=== PATIENT | male | born 1965 | race Caucasian/White ===

== ENCOUNTER → 2019-08-04 | Outpatient (CLI) | payer OTHER ==
--- NOTE | 2019-08-04 11:43 | Diagnostic Imaging Report ---
INDICATION: CHRONIC OBSTRUCTIVE PULMONARY DISEASE, ACUTE BRONCHITIS COMPARISON: None FINDINGS: Frontal and lateral views of the chest demonstrate normal heart size and pulmonary vascularity. The lungs show mild hyperinflation with increased lucency to the upper lung rascon consistent with background emphysematous disease. There are no signs of infiltrate, pleural effusions or pneumothoraces. The visualized osseous structures show no acute abnormalities. IMPRESSION: 1. No acute process. No signs of infiltrates, effusions or pneumothoraces. 2. Background emphysematous disease. Dictated by: Dictated on workstation # [id number]
== END ==
LOC: RAD FS 11:19
PROVIDERS: ATTEND Emergency Medicine
DX: J43.9 Emphysema, unspecified (principal); J20.9 Acute bronchitis, unspecified
CPT/HCPCS: 71046

== ENCOUNTER → 2020-02-23 | Outpatient (CLI) | payer OTHER ==
--- NOTE | 2020-02-23 09:23 | Diagnostic Imaging Report ---
INDICATION: Pain status post injury. COMPARISON: None. FINDINGS: 3 views of the left knee joint demonstrate no acute fracture or dislocation. No focal osseous lesions are seen. No significant joint effusion is seen. The surrounding soft tissue structures are unremarkable. There are no radiopaque foreign bodies. IMPRESSION: 1. No acute fractures or dislocations of the left knee joint. Dictated by: Dictated on workstation # [id number]
== END ==
LOC: RAD FS 09:01
PROVIDERS: ATTEND Emergency Medicine
DX: M23.207 Derangement of unspecified meniscus due to old tear or injury, left knee (principal)
CPT/HCPCS: 73562

== ENCOUNTER → 2021-03-31 | Outpatient (CLI) | payer MEDICARE, MEDICAID ==
--- NOTE | 2021-03-31 08:33 | Diagnostic Imaging Report ---
EXAM: CERVICAL SPINE 3 VIEW OR LESS INDICATION: Neck pain. COMPARISON: None. FINDINGS: Normal alignment. Vertebral body heights preserved. No fractures. Mild degenerative endplate changes at C6-C7. Normal prevertebral soft tissues. IMPRESSION: Mild spondylotic changes in the cervical spine. No acute radiographic findings. Dictated by: Dictated on workstation # [id number]
--- NOTE | 2021-03-31 08:35 | Diagnostic Imaging Report ---
EXAM: LUMBAR SPINE 2 OR 3 VIEW INDICATION: Back pain. Lumbar spine fusion. COMPARISON: None. FINDINGS: Normal alignment. Vertebral body heights preserved. No fractures identified. Mild degenerative endplate changes and facet arthropathy, greatest at L3-L5. Posterior instrumentation at L5-S1. Hardware components appear intact. No evidence of loosening. Moderate atherosclerotic calcifications. Visualized pelvis is intact. IMPRESSION: 1. Posterior instrumentation at L5-S1. No evidence hardware failure. 2. Mild spondylotic changes in the lumbar spine are greatest at L3-L5. Dictated by: Dictated on workstation # [id number]
--- NOTE | 2021-03-31 08:38 | Diagnostic Imaging Report ---
EXAM: THORACIC SPINE 3V AP LAT SWIM INDICATION: Back pain. COMPARISON: None. FINDINGS: Normal alignment. Vertebral body heights preserved. No fractures identified. No substantial spondylotic change. IMPRESSION: Negative thoracic spine radiographs. Dictated by: Dictated on workstation # [id number]
== END ==
LOC: RAD FS 08:05
PROVIDERS: ATTEND Nurse Practitioner Family
DX: M47.816 Spondylosis without myelopathy or radiculopathy, lumbar region (principal); M47.812 Spondylosis without myelopathy or radiculopathy, cervical region; M54.6 Pain in thoracic spine
CPT/HCPCS: 72040; 72072; 72100

== ENCOUNTER → 2021-04-05 | Outpatient (CLI) | payer MEDICARE, MEDICAID ==
--- NOTE | 2021-04-05 11:09 | Diagnostic Imaging Report ---
INDICATION: Shoulder pain. FINDINGS: There is arthrosis of the acromioclavicular joint. There are postsurgical changes in the rotator cuff. No fracture or dislocation. The right lung is clear. Soft tissues are unremarkable. IMPRESSION: Degenerative and postsurgical changes in the right shoulder, otherwise unremarkable. Dictated by: Dictated on workstation # [id number]
== END ==
LOC: RAD FS 10:44
PROVIDERS: ATTEND Emergency Medicine
DX: M19.011 Primary osteoarthritis, right shoulder (principal); Z98.890 Other specified postprocedural states
CPT/HCPCS: 73030

== ENCOUNTER 2022-01-18 13:45 | Emergency (ER) | payer MEDICARE, MEDICAID ==
[2022-01-18] MEDS ORDERED: ORPHENADRINE 60 MG/2 ML (NORFLEX) AMP (ED ONLY) IM STA (13:53)
[2022-01-18] MEDS ORDERED: KETOROLAC 30 MG/ML VIAL IM STA (13:53)
--- NOTE | 2022-01-18 14:01 | ED General ---
General Chief Complaint: Chest Wall Stated Complaint: LT RIB INJ History of Present Illness Date Seen by Provider: Jan 18, 2022 Time Seen by Provider: 13:58 Initial Comments 56-year-old male presents with pain to his left lateral ribs and anterior chest wall along the pectoralis muscle. Reports that he injured a couple days ago. That got worse especially after some use on it over the last day or 2. He reports a sharp stabbing pain that feels like "something is moving" that comes and goes. Is worse with movement or palpation. Allergies and Home Medications Allergies Coded Allergies: Penicillins (Verified Allergy, Unknown, 01/18/22) Patient Home Medication List Home Medication List Reviewed: Yes Baclofen (Baclofen) 5 Mg Tablet, 5 MG PO TID Prescribed by: DOMINIC JANG on 01/18/22 1430 Naproxen (Naprosyn) 500 Mg Tablet, 500 MG PO BID Prescribed by: DOMINIC JANG on 01/18/22 1430 Review of Systems Review of Systems Constitutional: No chills, No fever EENTM: no symptoms reported Respiratory: see HPI Cardiovascular: see HPI Gastrointestinal: no symptoms reported Musculoskeletal: no symptoms reported Skin: no symptoms reported Psychiatric/Neurological: No Symptoms Reported Hematologic/Lymphatic: No Symptoms Reported Past Nfsvhiy-Szfopy-Zyuajx Hx Patient Social History Tobacco Use?: Yes Tobacco type used: Cigarettes Substance use?: No Alcohol Use?: No Pt feels they are or have been: No Immunizations Up To Date First/Initial COVID19 Vaccinat: Yes Second COVID19 Vaccination Chaitanya: Yes Past Medical History Surgery/Hospitalization HX: Neuropathy; Depression; Seizures; GERD; COPD Physical Exam Vital Signs Vital Signs - First Documented 01/18/22 13:50 Temp 36.9 Pulse 67 Resp 18 B/P (MAP) 135/90 (105) Pulse Ox 95 O2 Delivery Room Air Capillary Refill : Height, Weight, BMI Height: '" Weight: lbs. oz. kg; BMI Method: General Appearance: No Apparent Distress, WD/WN HEENT: PERRL/EOMI Neck: Normal Inspection, Non Tender Respiratory: Lungs Clear, Normal Breath Sounds, Other (Tenderness along anterio r chest wall along the pectoralis along with the lateral upper chest wall tenderness no obvious crepitus) Cardiovascular: Regular Rate, Rhythm, No Edema Gastrointestinal: Non Tender, Soft Extremity: Normal Capillary Refill; No Swelling; Other (Upper rib/lateral left chest wall tenderness no crepitus or other abnormality noted) Neurologic/Psychiatric: Alert, Oriented x3, No Motor/Sensory Deficits, Normal Mood/Affect, fish trapper II-XII Norm as Tested Skin: Normal Color, Warm/Dry Progress/Results/Core Measures Suspected Sepsis SIRS Temperature: Pulse: Respiratory Rate: Blood Pressure / Mean: Results/Orders My Orders Orders - DOMINIC JANG L DO Ketorolac Injection (Toradol Injection) (01/18/22 13:53) Orphenadrine Inj (Ed Only) (Norflex Inje (01/18/22 13:53) Ribs/Unilateral With Chest (01/18/22 13:55) Vital Signs/I&O 01/18/22 13:50 Temp 36.9 Pulse 67 Resp 18 B/P (MAP) 135/90 (105) Pulse Ox 95 O2 Delivery Room Air Capillary Refill : Progress Note : Progress Note Patient with no acute findings on x-ray. Symptoms most likely just muscle spasm. He did get some relief with Flexeril. Prescribe him baclofen and napro xen. He can also use topicals. Patient stable and discharged home Diagnostic Imaging Diagonstic Imaging: Xray Plain Films/CT/US/NM/MRI: chest Comments Date of Exam:01/18/22 RIBS/UNILATERAL WITH CHEST EXAMINATION: Left rib radiographs, 2 views. PA chest, single view. COMPARISON: Chest radiographs August 04, 2019. HISTORY: 56-year-old male, left anterior chest wall pain. FINDINGS: Heart size and mediastinal contours are unremarkable. There is no identified pneumothorax. There is no large pleural effusion. There is no identified focal airspace consolidation. There is no identified displaced left-sided rib fracture. IMPRESSION: 1. No identified left-sided rib fracture or acute cardiopulmonary abnormality. Reviewed: Reviewed by Me, Reviewed/Discussed Departure Impression Primary Impression: Muscle spasm Disposition: 01 HOME, SELF-CARE Condition: Stable Departure-Patient Inst. Referrals: JABARI LATHAM DO (PCP) Primary Care Physician Patient Instructions: Using Cold for Pain, Using Heat for Pain, Muscle Spasm ED Add. Discharge Instructions: 4% topical lidocaine with menthol cream gel or patch use as directed on package Voltaren/diclofenac cream use as directed on package Capsaicin cream use as directed on package Ice 20 minutes at a time or warm moist heat 20 minutes at a time 3-4 times daily depending on which gives most relief All discharge instructions reviewed with patient and/or family. Voiced understanding. Scripts Naproxen (Naprosyn) 500 Mg Tablet 500 MG PO BID, #30 TAB 0 Refills Prov: DOMINIC JANG DO 01/18/22 Baclofen (Baclofen) 5 Mg Tablet 5 MG PO TID, #15 TAB Prov: DOMINIC JANG DO 01/18/22 DOMINIC JANG DO Jan 18, 2022 14:01
--- NOTE | 2022-01-18 14:27 | Diagnostic Imaging Report ---
EXAMINATION: Left rib radiographs, 2 views. PA chest, single view. COMPARISON: Chest radiographs August 04, 2019. HISTORY: 56-year-old male, left anterior chest wall pain. FINDINGS: Heart size and mediastinal contours are unremarkable. There is no identified pneumothorax. There is no large pleural effusion. There is no identified focal airspace consolidation. There is no identified displaced left-sided rib fracture. IMPRESSION: 1. No identified left-sided rib fracture or acute cardiopulmonary abnormality. Dictated by: Dictated on workstation # [id number]
[2022-01-18] MEDS ORDERED: BACL5TAB PO (14:30)
[2022-01-18] MEDS ORDERED: NAPR-1071 PO (14:30)
[2022-01-18 14:38] VITALS: BP 135/90
== END 2022-01-18 14:38 | disposition home or self-care (01) ==
LOC: EDUNIT# 13:45 → ER FS 13:47
DX: M62.838 Other muscle spasm (principal); F17.210 Nicotine dependence, cigarettes, uncomplicated; Z28.311 Partially vaccinated for COVID-19
CPT/HCPCS: 71101

== ENCOUNTER 2022-01-30 19:37 | Emergency (ER) | payer MEDICARE, MEDICAID ==
[~2022-01-30] VITALS: Ht 182.8 cm; Wt 94.8 kg
[~2022-01-30 19:37] MED LIST: BACL5TAB PO; NAPR-1071 PO
[2022-01-30] MEDS ORDERED: FAMOTIDINE 20 MG (PEPCID) TABLET PO STA (19:46)
[2022-01-30] MEDS ORDERED: morphine INJ 10 MG/ML 1ML (SYR OR VIAL) IVP STA (19:46)
--- NOTE | 2022-01-30 19:50 | ED Abdominal Pain ---
General Stated Complaint: ABD PAIN Source of Information: Patient, EMS Exam Limitations: No Limitations History of Present Illness Date Seen by Provider: Jan 30, 2022 Time Seen by Provider: 19:39 Initial Comments 56-year-old male coming in via EMS from home due to abdominal pain with nausea and nonbloody nonbilious vomiting. Started this morning, severe, sharp, center of his abdomen, does not radiate anywhere. Try taking some oxycodone he got from a friend which did not help. Had a hard stool yesterday and a loose stool today that was nonbloody. Denies any fever, chest pain, shortness of breath, weakness, numbness, rash, dysuria, or any other concerns. He says this happens intermittently and has for years. He says he has had multiple studies done, but none have been completed within our hospital system. Allergies and Home Medications Allergies Coded Allergies: Penicillins (Verified Allergy, Unknown, 01/18/22) Patient Home Medication List Home Medication List Reviewed: Yes Baclofen (Baclofen) 5 Mg Tablet, 5 MG PO TID Prescribed by: DOMINIC JANG on 01/18/22 1430 Naproxen (Naprosyn) 500 Mg Tablet, 500 MG PO BID Prescribed by: DOMINIC JANG on 01/18/22 1430 Review of Systems Review of Systems Constitutional: No fever EENTM: No Blurred Vision Respiratory: Denies Cough Cardiovascular: Denies Chest Pain Gastrointestinal: Abdominal Pain, Nausea, Vomiting Genitourinary: No Symptoms Reported Musculoskeletal: no symptoms reported Skin: no symptoms reported Psychiatric/Neurological: No Symptoms Reported Endocrine: No Symptoms Reported Hematologic/Lymphatic: No Symptoms Reported All Other Systems Reviewed Negative Unless Noted: Yes Past Vrxcrsy-Vrjktd-Ojvggs Hx Patient Social History Tobacco Use?: Yes Substance use?: Yes Substance type: 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 oz. kg; BMI Method: General Appearance: WD/WN, mild distress HEENT: PERRL/EOMI, normal ENT inspection, pharynx normal Neck: non-tender, full range of motion, supple, normal inspection Respiratory: chest non-tender, lungs clear, normal breath sounds, no respirat ory distress, no accessory muscle use Cardiovascular: regular rate, rhythm, no edema, no murmur Gastrointestinal: normal bowel sounds, soft; No distended, No guarding, No rebound; tenderness Extremities: normal range of motion, non-tender, normal inspection, no pedal edema, no calf tenderness, normal capillary refill Back: normal inspection, no CVA tenderness Neurologic/Psychiatric: no motor/sensory deficits, alert, normal mood/affect Skin: normal color, warm/dry Lymphatic: no adenopathy Progress/Results/Core Measures Results/Orders Lab Results Laboratory Tests Test 01/30/22 19:47 Range/Units White Blood Count 7.7 4.3-11.0 10^3/uL Red Blood Count 5.24 4.30-5.52 10^6/uL Hemoglobin 15.3 13.3-17.7 g/dL Hematocrit 44 40-54 % Mean Corpuscular Volume 85 80-99 fL Mean Corpuscular Hemoglobin 29 25-34 pg Mean Corpuscular Hemoglobin Concent 35 32-36 g/dL Red Cell Distribution Width 12.0 10.0-14.5 % Platelet Count 301 130-400 10^3/uL Mean Platelet Volume 9.3 9.0-12.2 fL Immature Granulocyte % (Auto) 0 % Neutrophils (%) (Auto) 88 H 42-75 % Lymphocytes (%) (Auto) 9 L 12-44 % Monocytes (%) (Auto) 3 0-12 % Eosinophils (%) (Auto) 0 0-10 % Basophils (%) (Auto) 0 0-10 % Neutrophils # (Auto) 6.8 1.8-7.8 10^3/uL Lymphocytes # (Auto) 0.7 L 1.0-4.0 10^3/uL Monocytes # (Auto) 0.2 0.0-1.0 10^3/uL Eosinophils # (Auto) 0.0 0.0-0.3 10^3/uL Basophils # (Auto) 0.0 0.0-0.1 10^3/uL Immature Granulocyte # (Auto) 0.0 0.0-0.1 10^3/uL Neutrophils % (Manual) 86 % Lymphocytes % (Manual) 12 % Monocytes % (Manual) 2 % Sodium Level 140 135-145 MMOL/L Potassium Level 4.0 3.6-5.0 MMOL/L Chloride Level 106 98-107 MMOL/L Carbon Dioxide Level 18 L 21-32 MMOL/L Anion Gap 16 H 5-14 MMOL/L Blood Urea Nitrogen 12 7-18 MG/DL Creatinine 0.79 0.60-1.30 MG/DL Estimat Glomerular Filtration Rate 104 BUN/Creatinine Ratio 15 Glucose Level 144 H 70-105 MG/DL Calcium Level 10.2 H 8.5-10.1 MG/DL Corrected Calcium 8.5-10.1 MG/DL Total Bilirubin 0.7 0.1-1.0 MG/DL Aspartate Amino Transf (AST/SGOT) 18 5-34 U/L Alanine Aminotransferase (ALT/SGPT) 15 0-55 U/L Alkaline Phosphatase 104 40-136 U/L Total Protein 7.9 6.4-8.2 GM/DL Albumin 4.8 H 3.2-4.5 GM/DL Lipase 13 8-78 U/L My Orders Orders - LUIZ MORENO MD Comprehensive Metabolic Panel (01/30/22 19:46) Lipase (01/30/22 19:46) Ed Iv/Invasive Line Start (01/30/22 19:46) Cbc With Automated Diff (01/30/22 19:46) Ct Abdomen/Pelvis W (01/30/22 19:46) Ed Iv/Invasive Line Start (01/30/22 19:46) Ns Iv 1000 Ml (Sodium Chloride 0.9%) (01/30/22 20:00) Ondansetron Injection (Zofran Injectio (01/30/22 20:00) Famotidine Tablet (Pepcid Tablet) (01/30/22 19:46) Morphine Injection (Morphine Injection (01/30/22 19:46) Manual Differential (01/30/22 19:47) Iohexol Injection (Omnipaque 350 Mg/Ml 1 (01/30/22 20:15) Sodium Chloride Flush (Catheter Flush Sy (01/30/22 20:15) Ns (Ivpb) (Sodium Chloride 0.9% Ivpb Bag (01/30/22 20:15) Received Contrast (Hold Metformin- Contr (01/30/22 20:15) Medications Given in ED Current Medications Medications Dose Ordered Sig/Raj Route Start Time Stop Time Status Last Admin Dose Admin Iohexol 100 ml ONCE ONCE IV 01/30/22 20:15 01/30/22 20:16 DC 01/30/22 20:35 100 ML Ondansetron HCl 4 mg ONCE ONCE IVP 01/30/22 20:00 01/30/22 20:01 DC 01/30/22 19:56 4 MG Sodium Chloride 10 ml NEEDED PRN IV 01/30/22 20:15 01/30/22 20:35 10 ML Sodium Chloride 100 ml ONCE ONCE IV 01/30/22 20:15 01/30/22 20:16 DC 01/30/22 20:35 80 ML Vital Signs/I&O 01/30/22 19:37 Temp 36.8 Pulse 77 Resp 17 B/P (MAP) 154/114 (127) Pulse Ox 99 O2 Delivery Room Air Progress Progress Note : Progress Note 56-year-old male with above history coming in due to abdominal pain with nausea. ABCs were intact and vitals were stable on presentation. An IV was placed and he was given morphine for pain and Zofran for nausea as well as IV fluids. Ba sic labs with unremarkable CBC, unremarkable electrolytes, normal creatinine, LFTs unremarkable, normal lipase. CT abdomen pelvis with concerns for likely gastroenteritis. This would clinically fit his picture with the loose stool, abdominal pain and nausea today. I believe he stable for discharge with outpatient follow-up. He was sent home with strict return precautions Initial ECG Impression Date: Jan 30, 2022 Initial ECG Impression Time: 20:06 Initial ECG Rate: 70 Initial ECG Rhythm: Normal Sinus Comment narrow QRS, borderline LAD, LVH by aVL criteria, no significant ST changes or TW abnormalities, no prior EKG to compare to Diagnostic Imaging Diagonstic Imaging: CT (abd/pelv) Comments NAME: DANNY BONNERElizabeth Peters [facility] REC#: [id number] PT STATUS: REG ER : 1965 PHYSICIAN: LUIZ MORENO MD ADMIT DATE: 01/30/22/ER FS Draft Date of Exam:01/30/22 CT ABDOMEN/PELVIS W INDICATION: Periumbilical abdominal pain with vomiting, history of lumbar fusion. TECHNIQUE: Multiple contiguous axial images were obtained through the abdomen and pelvis after administration of intravenous contrast. Auto Exposure Controls were utilized during the CT exam to meet ALARA standards for radiation dose reduction. All CT scans use one or more of the following dose optimizing techniques: automated exposure control, MA and/or KvP adjustment based on patient size and exam type or iterative reconstruction. COMPARISON: There is no prior study for comparison. FINDINGS: The visualized portions of the lung bases are clear. There is no pleural fluid collection. There is no free intraperitoneal air. Patient has had previous L5-S1 posterior fusion with anatomic alignment. The liver shows no focal lesion. Gallbladder appears normal. The spleen appears unremarkable. There is a moderate size hiatal hernia. Adrenals and pancreas appear unremarkable. Kidneys, bilaterally, show no acute abnormality, there is a small cyst in the left kidney. There is no retroperitoneal mass or adenopathy. There is no ascites. Visualized bowel loops show no overt obstruction. There are a few scattered fluid filled loops of small bowel which may represent gastroenteritis. There is no overt bowel obstruction. IMPRESSION: A few fluid-filled loops of small bowel are present which may represent gastroenteritis. There is no overt obstruction. There is a moderate size hiatal hernia. There is no small benign left renal cyst. Dictated on workstation # [id number] Dict: 01/30/222139 Trans: 01/30/222145 [facility] [id number] Interpreted by: JENELLE LAURA MD Electronically signed by: Departure Impression Primary Impression: Gastroenteritis Disposition: 01 HOME, SELF-CARE Condition: Stable Departure-Patient Inst. Decision time for Depature: 21:53 Referrals: JABARI LATHAM DO (PCP/Family) Primary Care Physician Patient Instructions: Viral Gastroenteritis, Adult (DC) Add. Discharge Instructions: Your labs and imaging did not show anything very concerning. You likely have what's called gastroenteritis. This is typically a viral infection that gets better by itself. I sent nausea meds and pain meds to your pharmacy. Follow up with your regular doctor next week if not feeling better. Scripts Dicyclomine HCl (Dicyclomine HCl) 20 Mg Tablet 20 MG PO QID PRN for abdominal spasms for 5 Days, #20 TAB Prov: LUIZ MORENO MD 01/30/22 Ondansetron (Ondansetron Odt) 4 Mg Tab.rapdis 4 MG PO Q6H PRN for NAUSEA/VOMITING-1ST LINE for 5 Days, #20 TAB Prov: LUIZ MORENO MD 01/30/22 Work/School Note: Work Release Form Date Seen in the Emergency Department: Jan 30, 2022 Return to Work: Feb 01, 2022 Restrictions: No Restrictions LUIZ MORENO MD Jan 30, 2022 19:50
[2022-01-30 19:53] LABS: BASOPHILS % (AUTO) 0 % (0-10); EOSINOPHILS % (AUTO) 0 % (0-10); HEMATOCRIT 44 % (40-54); HEMOGLOBIN 15.3 g/dL (13.3-17.7); LYMPHOCYTES # (AUTO) 0.7 10^3/uL (1.0-4.0); LYMPHOCYTES % (AUTO) 9 % (12-44); MEAN CORPUSCULAR HEMOGLOBIN 29 pg (25-34); MEAN CORPUSCULAR HGB CONC 35 g/dL (32-36); MEAN CORPUSCULAR VOLUME 85 fL (80-99); MEAN PLATELET VOLUME 9.3 fL (9.0-12.2); MONOCYTES # (AUTO) 0.2 10^3/uL (0.0-1.0); MONOCYTES % (AUTO) 3 % (0-12); NEUTROPHILS # (AUTO) 6.8 10^3/uL (1.8-7.8); NEUTROPHILS % (AUTO) 88 % (42-75); PLATELET COUNT 301 10^3/uL (130-400); WHITE BLOOD COUNT 7.7 10^3/uL (4.3-11.0)
[2022-01-30] MEDS ORDERED: ONDANSETRON 4 MG/2 ML (SDV) Z0FRAN IVP ONE (20:00)
[2022-01-30] MEDS ORDERED: NS IV 1000 ML 1,000 ML IV SCH (20:00)
[2022-01-30 20:12] LABS: ALANINE AMINOTRANSFERASE 15 U/L (0-55); ALKALINE PHOSPHATASE 104 U/L (40-136); BILIRUBIN,TOTAL 0.7 MG/DL (0.1-1.0); BUN/CREATININE RATIO 15; CALCIUM 10.2 MG/DL (8.5-10.1); CARBON DIOXIDE 18 MMOL/L (21-32); CHLORIDE 106 MMOL/L (98-107); CREATININE SERUM 0.79 MG/DL (0.60-1.30); GFR ESTIMATED 104; GLUCOSE 144 MG/DL (70-105); SODIUM 140 MMOL/L (135-145); TOTAL PROTEIN 7.9 GM/DL (6.4-8.2)
[2022-01-30 20:13] LABS: ALBUMIN 4.8 GM/DL (3.2-4.5); LIPASE 13 U/L (8-78)
[2022-01-30] MEDS ORDERED: IOHEXOL 350 MG/ML 100 ML (OMNIPAQUE 350) VIAL IV ONE (20:15)
[2022-01-30] MEDS ORDERED: NS 100 ML (IVPB) BAG IV ONE (20:15)
[2022-01-30] MEDS ORDERED: CATHETER FLUSH 10 ML SYR IV PRN (20:15)
[2022-01-30] MEDS ORDERED: HOLD METFORMIN - RECEIVED CONTRAST 20 ML VIAL IV SCH (20:15)
[2022-01-30 20:23] LABS: LYMPHOCYTES % (MANUAL) 12 %; MONOCYTES % (MANUAL) 2 %; NEUTROPHILS % (MANUAL) 86 %
--- NOTE | 2022-01-30 21:47 | Diagnostic Imaging Report ---
INDICATION: Periumbilical abdominal pain with vomiting, history of lumbar fusion. TECHNIQUE: Multiple contiguous axial images were obtained through the abdomen and pelvis after administration of intravenous contrast. Auto Exposure Controls were utilized during the CT exam to meet ALARA standards for radiation dose reduction. All CT scans use one or more of the following dose optimizing techniques: automated exposure control, MA and/or KvP adjustment based on patient size and exam type or iterative reconstruction. COMPARISON: There is no prior study for comparison. FINDINGS: The visualized portions of the lung bases are clear. There is no pleural fluid collection. There is no free intraperitoneal air. Patient has had previous L5-S1 posterior fusion with anatomic alignment. The liver shows no focal lesion. Gallbladder appears normal. The spleen appears unremarkable. There is a moderate size hiatal hernia. Adrenals and pancreas appear unremarkable. Kidneys, bilaterally, show no acute abnormality, there is a small cyst in the left kidney. There is no retroperitoneal mass or adenopathy. There is no ascites. Visualized bowel loops show no overt obstruction. There are a few scattered fluid filled loops of small bowel which may represent gastroenteritis. There is no overt bowel obstruction. IMPRESSION: A few fluid-filled loops of small bowel are present which may represent gastroenteritis. There is no overt obstruction. There is a moderate size hiatal hernia. There is no small benign left renal cyst. Dictated by: Dictated on workstation # [id number]
[2022-01-30] MEDS ORDERED: DICY20TA PO (21:58)
[2022-01-30] MEDS ORDERED: ONDA4TAB11 PO (21:58)
[2022-01-30] MEDS ORDERED: DROPERIDOL 5 MG/2 ML (INAPSINE) ED ONLY! IV ONE (22:00)
[2022-01-30] MEDS ORDERED: HYOSCYAMINE 0.125 MG (LEVSIN) TAB PO ONE (22:00)
[2022-01-30] MEDS ORDERED: KETOROLAC 30 MG/ML VIAL IVP ONE (22:00)
[2022-01-30 22:10] VITALS: BP 165/81
== END 2022-01-30 22:10 | disposition home or self-care (01) ==
LOC: EDUNIT# 19:37 → ER FS 19:38
DX: K52.9 Noninfective gastroenteritis and colitis, unspecified (principal)
CPT/HCPCS: 36415; 74177; 80053; 83690; 85007; 85027

== ENCOUNTER 2022-02-01 17:22 | Emergency (ER) | payer MEDICARE, MEDICAID ==
[~2022-02-01] VITALS: Ht 182.8 cm; Wt 94.8 kg
[~2022-02-01 17:22] MED LIST changes: +DICY20TA PO; +ONDA4TAB11 PO
[2022-02-01] MEDS ORDERED: NS IV 1000 ML 1,000 ML IV STA (17:36)
[2022-02-01 17:41] LABS: BASOPHILS % (AUTO) 0 % (0-10); EOSINOPHILS % (AUTO) 0 % (0-10); HEMATOCRIT 47 % (40-54); HEMOGLOBIN 16.2 g/dL (13.3-17.7); LYMPHOCYTES # (AUTO) 1.6 10^3/uL (1.0-4.0); LYMPHOCYTES % (AUTO) 22 % (12-44); MEAN CORPUSCULAR HEMOGLOBIN 30 pg (25-34); MEAN CORPUSCULAR HGB CONC 35 g/dL (32-36); MEAN CORPUSCULAR VOLUME 85 fL (80-99); MEAN PLATELET VOLUME 9.4 fL (9.0-12.2); MONOCYTES # (AUTO) 0.5 10^3/uL (0.0-1.0); MONOCYTES % (AUTO) 7 % (0-12); NEUTROPHILS % (AUTO) 71 % (42-75); PLATELET COUNT 294 10^3/uL (130-400); WHITE BLOOD COUNT 7.1 10^3/uL (4.3-11.0)
--- NOTE | 2022-02-01 17:41 | ED General ---
General Chief Complaint: COVID19 Suspect/Confirmed Stated Complaint: FEVER; VOMITING Nursing Triage Note: Patient presents to the ED with c/o nausea, vomiting, body aches, and cough. Reports symptoms began Wednesday and he was seen at the ED and prescribed ondansetron. States it helped Wednesday but he hasn't been able to keep any food or fluids down for the past 2 days. Source of Information: Patient Exam Limitations: No Limitations History of Present Illness Date Seen by Provider: Feb 01, 2022 Time Seen by Provider: 17:27 Initial Comments 56-year-old male that was seen in the emergency department 2 days ago for abdominal pain with vomiting with CT concerning for gastroenteritis coming in d ue to continued nausea with vomiting, body aches, cough. He has been taking the Zofran which is helped some but lately has not. Now he is feeling like it is hard for him to keep food down. Denies any fever that he knows of. He is otherwise denying any other acute complaints. Allergies and Home Medications Allergies Coded Allergies: Penicillins (Verified Allergy, Unknown, 01/18/22) Patient Home Medication List Home Medication List Reviewed: Yes Baclofen (Baclofen) 5 Mg Tablet, 5 MG PO TID Prescribed by: DOMINIC JANG on 01/18/22 1430 Dicyclomine HCl (Dicyclomine HCl) 20 Mg Tablet, 20 MG PO QID PRN for abdominal spasms Prescribed by: LUIZ MORENO on 01/30/222157 Naproxen (Naprosyn) 500 Mg Tablet, 500 MG PO BID Prescribed by: DOMINIC JANG on 01/18/22 1430 Ondansetron (Ondansetron Odt) 4 Mg Tab.rapdis, 4 MG PO Q6H PRN for NAUSEA/VOMITING-1ST LINE Prescribed by: LUIZ MORENO on 01/30/222157 Review of Systems Review of Systems Constitutional: No fever; malaise EENTM: No blurred vision Respiratory: cough Cardiovascular: No chest pain Gastrointestinal: vomiting Genitourinary: no symptoms reported Musculoskeletal: no symptoms reported Skin: no symptoms reported Psychiatric/Neurological: No Symptoms Reported Hematologic/Lymphatic: No Symptoms Reported Immunological/Allergic: no symptoms reported All Other Systems Reviewed Negative Unless Noted: Yes Past Zctcqmz-Aygnrt-Qbpigl Hx Patient Social History Tobacco Use?: Yes Tobacco type used: Cigarettes Smoking Status: Current Everyday Smoker Substance use?: No Alcohol Use?: No Immunizations Up To Date First/Initial COVID19 Vaccinat: Yes Second COVID19 Vaccination Chaitanya: Yes Third COVID19 Vaccination Date: Yes Past Medical History Surgery/Hospitalization HX: Neuropathy; Depression; Seizures; GERD; COPD Surgeries: Yes (hernia repair, back surgery, knee surgery) Physical Exam Vital Signs Vital Signs - First Documented 02/01/22 17:23 Temp 36.8 Pulse 72 Resp 20 B/P (MAP) 148/96 (113) Pulse Ox 99 O2 Delivery Room Air Capillary Refill : Less Than 3 Seconds Height, Weight, BMI Height: '" Weight: lbs. oz. kg; 28.00 BMI Method: General Appearance: No Apparent Distress, WD/WN Eyes: Bilateral Eye Normal Inspection HEENT: PERRL/EOMI, Normal ENT Inspection, Pharynx Normal Neck: Full Range of Motion, Normal Inspection, Non Tender, Supple Respiratory: Chest Non Tender, Lungs Clear, Normal Breath Sounds, No Accessory Muscle Use, No Respiratory Distress Cardiovascular: Regular Rate, Rhythm, No Edema, Normal Peripheral Pulses Gastrointestinal: Normal Bowel Sounds, Non Tender (Not exhibiting signs of pain when palpated with a stethoscope), Soft; No Distended, No Guarding Back: Normal Inspection Extremity: Normal Capillary Refill, Normal Inspection, Normal Range of Motion, Non Tender, No Calf Tenderness, No Pedal Edema Neurologic/Psychiatric: Alert, No Motor/Sensory Deficits, Normal Mood/Affect Skin: Normal Color, Warm/Dry Lymphatic: No Adenopathy Progress/Results/Core Measures Suspected Sepsis SIRS Temperature: Pulse: 72 Respiratory Rate: 20 Laboratory Tests 02/01/22 17:30: White Blood Count 7.1 Blood Pressure 148 /96 Mean: 113 Laboratory Tests 02/01/22 17:30: Creatinine 0.93, Platelet Count 294, Total Bilirubin 1.1H Results/Orders Lab Results Laboratory Tests Test 02/01/22 17:30 Range/Units White Blood Count 7.1 4.3-11.0 10^3/uL Red Blood Count 5.48 4.30-5.52 10^6/uL Hemoglobin 16.2 13.3-17.7 g/dL Hematocrit 47 40-54 % Mean Corpuscular Volume 85 80-99 fL Mean Corpuscular Hemoglobin 30 25-34 pg Mean Corpuscular Hemoglobin Concent 35 32-36 g/dL Red Cell Distribution Width 11.7 10.0-14.5 % Platelet Count 294 130-400 10^3/uL Mean Platelet Volume 9.4 9.0-12.2 fL Immature Granulocyte % (Auto) 0 % Neutrophils (%) (Auto) 71 42-75 % Lymphocytes (%) (Auto) 22 12-44 % Monocytes (%) (Auto) 7 0-12 % Eosinophils (%) (Auto) 0 0-10 % Basophils (%) (Auto) 0 0-10 % Neutrophils # (Auto) 5.0 1.8-7.8 10^3/uL Lymphocytes # (Auto) 1.6 1.0-4.0 10^3/uL Monocytes # (Auto) 0.5 0.0-1.0 10^3/uL Eosinophils # (Auto) 0.0 0.0-0.3 10^3/uL Basophils # (Auto) 0.0 0.0-0.1 10^3/uL Immature Granulocyte # (Auto) 0.0 0.0-0.1 10^3/uL Sodium Level 137 135-145 MMOL/L Potassium Level 3.9 3.6-5.0 MMOL/L Chloride Level 100 98-107 MMOL/L Carbon Dioxide Level 23 21-32 MMOL/L Anion Gap 14 5-14 MMOL/L Blood Urea Nitrogen 24 H 7-18 MG/DL Creatinine 0.93 0.60-1.30 MG/DL Estimat Glomerular Filtration Rate 96 BUN/Creatinine Ratio 26 Glucose Level 112 H 70-105 MG/DL Calcium Level 9.9 8.5-10.1 MG/DL Corrected Calcium 8.5-10.1 MG/DL Total Bilirubin 1.1 H 0.1-1.0 MG/DL Aspartate Amino Transf (AST/SGOT) 20 5-34 U/L Alanine Aminotransferase (ALT/SGPT) 17 0-55 U/L Alkaline Phosphatase 104 40-136 U/L Total Protein 8.0 6.4-8.2 GM/DL Albumin 5.0 H 3.2-4.5 GM/DL Lipase 18 8-78 U/L Influenza Type A (RT-PCR) Not Detected Not Detecte Influenza Type B (RT-PCR) Not Detected Not Detecte SARS-CoV-2 RNA (RT-PCR) Not Detected Not Detecte My Orders Orders - LUIZ MORENO MD Cbc With Automated Diff (02/01/22 17:36) Comprehensive Metabolic Panel (02/01/22 17:36) Lipase (02/01/22 17:36) Promethazine Injection (Phenergan Injec (02/01/22 17:45) Covid 19 Inhouse Test (02/01/22 17:36) Ns Iv 1000 Ml (Sodium Chloride 0.9%) (02/01/22 17:36) Ketorolac Injection (Toradol Injection) (02/01/22 17:45) Influenza A And B By Pcr (02/01/22 17:48) Droperidol Inj (Ed Only) (Inapsine Inj ( (02/01/22 18:30) Diphenhydramine Injection (Benadryl Inje (02/01/22 18:30) Medications Given in ED Current Medications Medications Dose Ordered Sig/Raj Route Start Time Stop Time Status Last Admin Dose Admin Ketorolac Tromethamine 15 mg ONCE ONCE IVP 02/01/22 17:45 02/01/22 17:46 DC 02/01/22 17:51 15 MG Promethazine HCl 25 mg ONCE ONCE IVP 02/01/22 17:45 02/01/22 17:46 DC 02/01/22 17:51 25 MG Vital Signs/I&O 02/01/22 17:23 Temp 36.8 Pulse 72 Resp 20 B/P (MAP) 148/96 (113) Pulse Ox 99 O2 Delivery Room Air Capillary Refill : Less Than 3 Seconds Blood Pressure Mean: 113 Progress Note : Progress Note 56-year-old male with above history coming in due to continued body aches, nausea, vomiting. ABCs were intact and vitals are stable on presentation. Physical exam reassuring including a soft and nontender abdomen when specifically palpated with a stethoscope. If just barely touching his skin with my fingers brushing over the abdomen he screams in pain. I can then repeat deep palpation with a stethoscope with no response. Given toradol for pain and phenergan for nausea. IV fluids given for the vomiting. Basic labs essentially unremarkable. Negative flu and COVID testing. He had a CT of his abd/pelv 2 days ago for the same symptoms and it was consistent with gastroenteritis. This still fits his clinical picture. I believe he is stable for discharge with outpatient follow up. He was sent home with strict return precautions. Departure Impression Primary Impression: Vomiting in adult Disposition: 01 HOME, SELF-CARE Condition: Stable Departure-Patient Inst. Decision time for Depature: 18:45 Referrals: JABARI LATHAM DO (PCP/Family) Primary Care Physician Patient Instructions: Nausea and Vomiting, Adult ED Add. Discharge Instructions: You can try the phenergan for nausea if the zofran is not helping. Call your doctor tomorrow if not feeling slightly better. Work/School Note: Work Release Form Date Seen in the Emergency Department: Feb 01, 2022 Return to Work: Feb 03, 2022 Restrictions: Return-No Vomiting(24hrs) LUIZ MORENO MD Feb 01, 2022 17:41
[2022-02-01] MEDS ORDERED: PROMETHAZINE INJ 25 MG/ML (PHENERGAN) AMP IVP ONE (17:45)
[2022-02-01] MEDS ORDERED: KETOROLAC 30 MG/ML VIAL IVP ONE (17:45)
[2022-02-01 17:57] LABS: ALANINE AMINOTRANSFERASE 17 U/L (0-55); ALKALINE PHOSPHATASE 104 U/L (40-136); BILIRUBIN,TOTAL 1.1 MG/DL (0.1-1.0); BUN/CREATININE RATIO 26; CALCIUM 9.9 MG/DL (8.5-10.1); CARBON DIOXIDE 23 MMOL/L (21-32); CHLORIDE 100 MMOL/L (98-107); CREATININE SERUM 0.93 MG/DL (0.60-1.30); GFR ESTIMATED 96; GLUCOSE 112 MG/DL (70-105); POTASSIUM 3.9 MMOL/L (3.6-5.0); SODIUM 137 MMOL/L (135-145)
[2022-02-01 17:58] LABS: LIPASE 18 U/L (8-78)
[2022-02-01] MEDS ORDERED: DROPERIDOL 5 MG/2 ML (INAPSINE) ED ONLY! IV ONE (18:30)
[2022-02-01] MEDS ORDERED: diphenhydrAMINE 50 MG/ML INJ (BENADRYL) IVP ONE (18:30)
[2022-02-01 18:44] VITALS: BP 148/96
== END 2022-02-01 18:43 | disposition home or self-care (01) ==
LOC: EDUNIT# 17:22 → ER FS 17:23
DX: R11.2 Nausea with vomiting, unspecified (principal); F17.210 Nicotine dependence, cigarettes, uncomplicated; Z20.822 Contact with and (suspected) exposure to COVID-19
CPT/HCPCS: 36415; 80053; 83690; 85025; 87636; 99283

== ENCOUNTER 2022-02-04 13:56 | Emergency (ER) | payer MEDICARE, MEDICAID ==
[~2022-02-04] VITALS: Ht 182.9 cm; Wt 79.5 kg
[2022-02-04 14:00] VITALS: BP 123/89
[2022-02-04] MEDS ORDERED: ORPHENADRINE 60 MG/2 ML (NORFLEX) AMP (ED ONLY) IM STA (14:51)
[2022-02-04] MEDS ORDERED: KETOROLAC 60 MG/2 ML VIAL IM STA (14:51)
[2022-02-04] MEDS ORDERED: HYDROcodone/APAP 5 MG/325 MG (LORTAB) TAB PO STA (14:51)
--- NOTE | 2022-02-04 14:58 | ED Back Pain ---
General Chief Complaint: Back Problems Stated Complaint: BACK PAIN Nursing Triage Note: Patient reports he has had upper back pain for 1 week, states he was lifting items last Wednesday and may have pulled a muscle in his back. He states he took a flexeril last night at home. Source of Information: Patient History of Present Illness Date Seen by Provider: Feb 04, 2022 Time Seen by Provider: 14:38 Initial Comments 56-year-old male presenting with complaints of pain between his shoulder blades in his back as well as radiating to the left shoulder blade and posterior ribs. He states that he had been doing some heavy cleaning on Wednesday and Wednesday and felt like that aggravated his back. He also had been having a lot of nausea and vomiting over the last week. He was not sure if this also had aggravated his back. 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 He denies any numbness or tingling into his arms or legs. He has no di rect trauma to his back. He has no shortness of breath. He had tried Flexeril at home with little to no relief. Location: T-Spine, Other (posterior left ribs) Timing/Duration: 2-3 Days Severity: Severe Pain/Injury Location: Back (Thoracic spine and left posterior ribs) Method of Injury: Other (vigorous cleaning of kitchen with a lot of grease) Modifying Factors: Worse With Movement Associated Symptoms: muscle spasms; No fever, No weakness, No numbness in legs/feet, No tingling in legs/feet, No sensory/motor loss, No lower back pain, No loss of bladder control, No loss of bowel control Allergies and Home Medications Allergies Coded Allergies: Penicillins (Verified Allergy, Unknown, 01/18/22) Patient Home Medication List Home Medication List Reviewed: Yes Baclofen (Baclofen) 5 Mg Tablet, 5 MG PO TID Prescribed by: DOMINIC JANG on 01/18/22 1430 Dicyclomine HCl (Dicyclomine HCl) 20 Mg Tablet, 20 MG PO QID PRN for abdominal spasms Prescribed by: LUIZ MORENO on 01/30/222157 Naproxen (Naprosyn) 500 Mg Tablet, 500 MG PO BID Prescribed by: DOMINIC JANG on 01/18/22 1430 Ondansetron (Ondansetron Odt) 4 Mg Tab.rapdis, 4 MG PO Q6H PRN for NAUSEA/VOMITING-1ST LINE Prescribed by: LUIZ MORENO on 01/30/222157 Review of Systems Constitutional: No chills, No fever EENTM: no symptoms reported Respiratory: no symptoms reported Cardiovascular: no symptoms reported Gastrointestinal: see HPI Genitourinary: no symptoms reported Musculoskeletal: see HPI Skin: No change in color, No rash Psychiatric/Neurological: Denies Numbness, Denies Paresthesia Past Mjxktti-Bzvdrm-Aigozc Hx Patient Social History Tobacco Use?: Yes Substance use?: No Alcohol Use?: No Pt feels they are or have been: No Immunizations Up To Date First/Initial COVID19 Vaccinat: Yes Second COVID19 Vaccination Chaitanya: Yes Third COVID19 Vaccination Date: Yes Past Medical History Surgery/Hospitalization HX: Neuropathy; Depression; Seizures; GERD; COPD Surgeries: Yes (hernia repair, back surgery, knee surgery) Physical Exam Vital Signs Vital Signs - First Documented 02/04/22 14:00 Temp 36.7 Pulse 96 Resp 14 B/P (MAP) 123/89 (100) Pulse Ox 99 O2 Delivery Room Air Capillary Refill : Less Than 3 Seconds Height, Weight, BMI Height: '" Weight: lbs. oz. kg; 23.00 BMI Method: General Appearance: No Apparent Distress Neck: Full Range of Motion, Normal Inspection, Non Tender, Supple Cardiovascular: Regular Rate, Rhythm, Normal Peripheral Pulses Respiratory: No Chest Non Tender (tender to palpation over mid thoracic spine and left posterior chest wall/ribs with muscle spasm. No step off or crepitus over T spine or ribs); Lungs Clear, Normal Breath Sounds, No Accessory Muscle Use, No Respiratory Distress Extremity: Normal Capillary Refill, Normal Inspection, No Pedal Edema Neurologic/Psychiatric: Alert, Oriented x3, No Motor/Sensory Deficits, Normal Mood/Affect, medical billing supervisor II-XII Norm as Tested Skin: Normal Color, Warm/Dry; No Ecchymosis Progress/Results/Core Measures Results/Orders My Orders Orders - EDDI ALVA MD Ketorolac Injection (Toradol Injection) (02/04/22 14:51) Orphenadrine Inj (Ed Only) (Norflex Inje (02/04/22 14:51) Hydrocodone/Apap 5/325 Tablet (Lortab 5 (02/04/22 14:51) Ct Chest Wo (02/04/22 14:52) Methylprednisolone Acetate Inj (Depo-Med (02/04/22 15:38) Vital Signs/I&O 02/04/22 14:00 Temp 36.7 Pulse 96 Resp 14 B/P (MAP) 123/89 (100) Pulse Ox 99 O2 Delivery Room Air Blood Pressure Mean: 100 Progress Progress Note #1: Progress Note Try Toradol with Norflex to try and help with pain and inflammation as well as muscle spasms. Give a single hydrocodone pill for more severe pain. Obtain a C T scan of his chest without contrast to evaluate the ribs and his thoracic spine. Progress Note #2: Progress Note CT scan does not demonstrate any acute fracture, compression fracture, rib fracture, pneumothorax, hemothorax. Will treat with continued muscle relaxer and anti-inflammatory. Counseled on follow-up and return precautions. Advised to check back with the clinic for continued issues. Try alternating ice and heat to the back as well. 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 Diagnostic Imaging Diagonstic Imaging: CT Plain Films/CT/US/NM/MRI: chest Comments NAME: MARCOS BONNER [facility] REC#: [id number] PT STATUS: REG ER : 1965 PHYSICIAN: EDDI ALVA MD ADMIT DATE: 02/04/22/ER FS Signed Date of Exam:02/04/22 CT CHEST WO EXAMINATION: CT chest without contrast. TECHNIQUE: Multiple contiguous axial images were obtained through the chest without the use of intravenous contrast. All CT scans use one or more of the following dose optimizing techniques: automated exposure control, MA and/or KvP adjustment based on patient size and exam type or iterative reconstruction. HISTORY: Upper back pain x 1 week. Lifting injury. COMPARISON: 01/18/2022. FINDINGS: The heart size is within normal limits. No pericardial effusion is present. There is no mediastinal, hilar, or axillary lymphadenopathy. Centrilobular emphysema is seen throughout the lungs. Scattered calcified granulomas are present. No suspicious pulmonary nodules. There are no focal areas of consolidation. No central endobronchial obstructing lesions are identified. There is no pleural effusion or pneumothorax. The osseous structures demonstrate no acute abnormalities. Limited views of the upper abdominal structures demonstrate no acute abnormalities. Both adrenal glands are unremarkable. IMPRESSION: 1. Centrilobular emphysema. No focal consolidation or suspicious pulmonary nodules. 2. No acute osseous abnormalities in the thoracic spine. No evidence of acute fracture or malalignment. No acute spinal canal stenosis. Dictated by: Dictated on workstation # [id number] Dict: 02/04/22 1514 Trans: 02/04/22 1519 [id number] Interpreted by: KRISTEN MUSE DO Electronically signed by: KRISTEN MUSE DO 02/04/22 1519 Reviewed: Reviewed by Me Departure Impression Primary Impression: Acute thoracic myofascial strain Qualified Codes: S29.019A - Strain of muscle and tendon of unspecified wall of thorax, initial encounter Additional Impression: Left-sided chest wall pain Disposition: 01 HOME, SELF-CARE Condition: Stable Departure-Patient Inst. Decision time for Depature: 15:25 Referrals: JABARI LATHAM DO (PCP/Family) Primary Care Physician Patient Instructions: Upper Back Pain ED, Muscle Strain ED, Using Cold for Pain Add. Discharge Instructions: Try alternating ice and heat to your back to help with pain and inflammation. Take muscle relaxer along with steroid shot you got today should help the muscle spasms and strain improve. Check with clinic if having continued problems/concerns. All discharge instructions reviewed with patient and/or family. Voiced understanding. EDDI ALVA MD Feb 04, 2022 14:58
--- NOTE | 2022-02-04 15:17 | Diagnostic Imaging Report ---
EXAMINATION: CT chest without contrast. TECHNIQUE: Multiple contiguous axial images were obtained through the chest without the use of intravenous contrast. All CT scans use one or more of the following dose optimizing techniques: automated exposure control, MA and/or KvP adjustment based on patient size and exam type or iterative reconstruction. HISTORY: Upper back pain x 1 week. Lifting injury. COMPARISON: 01/18/2022. FINDINGS: The heart size is within normal limits. No pericardial effusion is present. There is no mediastinal, hilar, or axillary lymphadenopathy. Centrilobular emphysema is seen throughout the lungs. Scattered calcified granulomas are present. No suspicious pulmonary nodules. There are no focal areas of consolidation. No central endobronchial obstructing lesions are identified. There is no pleural effusion or pneumothorax. The osseous structures demonstrate no acute abnormalities. Limited views of the upper abdominal structures demonstrate no acute abnormalities. Both adrenal glands are unremarkable. IMPRESSION: 1. Centrilobular emphysema. No focal consolidation or suspicious pulmonary nodules. 2. No acute osseous abnormalities in the thoracic spine. No evidence of acute fracture or malalignment. No acute spinal canal stenosis. Dictated by: Dictated on workstation # [id number]
[2022-02-04] MEDS ORDERED: methylPREDNISolone 80 MG/ML (DEPO MEDROL) VIAL IM STA (15:38)
== END 2022-02-04 15:50 | disposition home or self-care (01) ==
LOC: EDUNIT# 13:56 → ER FS 13:59
DX: S29.019A Strain of muscle and tendon of unspecified wall of thorax, initial encounter (principal); R07.89 Other chest pain; X58.XXXA Exposure to other specified factors, initial encounter; Y93.E5 Activity, floor mopping and cleaning; Y92.090 Kitchen in other non-institutional residence as the place of occurrence of the external cause
CPT/HCPCS: 71250

== ENCOUNTER 2022-04-23 10:01 | Emergency (ER) | payer MEDICARE, MEDICAID ==
[~2022-04-23] VITALS: Ht 187 cm; Wt 86.0 kg
--- NOTE | 2022-04-23 10:13 | ED Respiratory ---
General Stated Complaint: SOB Source: patient, other (urgent care provider) Exam Limitations: no limitations History of Present Illness Date Seen by Provider: Apr 23, 2022 Time Seen by Provider: 10:00 Initial Comments 56-year-old male with past medical history most notable for COPD coming in as referral from urgent care due to feeling short of breath. He says has been ongoing for 3 days, worsening, constant, worse with a lot of activity, better with rest. The urgent care did a COVID test which was negative. His oxygen was 93% they are on room air. He says he has had constant chest pain on the right side of his chest in 1 spot that is not moving in that time for the past several days. Has had discomfort like this before. Denies any cardiac history or any stents in his heart. Denies any history of DVT or PE, lower extremity swelling or pain, hemoptysis, recent long travel, recent surgery, or any other symptoms such as fever, weakness, numbness, nausea, vomiting, abdominal pain, diarrhea, rash, or any other concerns Of note, he is supposed to be on a DuoNeb treatment twice a day, but he no longer has a machine and has not been doing it. Allergies and Home Medications Allergies Coded Allergies: Penicillins (Verified Allergy, Unknown, 01/18/22) Patient Home Medication List Home Medication List Reviewed: Yes Baclofen (Baclofen) 5 Mg Tablet, 5 MG PO TID Prescribed by: DOMINIC JANG on 01/18/22 1430 Dicyclomine HCl (Dicyclomine HCl) 20 Mg Tablet, 20 MG PO QID PRN for abdominal spasms Prescribed by: LUIZ MORENO on 01/30/222157 Naproxen (Naprosyn) 500 Mg Tablet, 500 MG PO BID Prescribed by: DOMINIC JANG on 01/18/22 1430 Ondansetron (Ondansetron Odt) 4 Mg Tab.rapdis, 4 MG PO Q6H PRN for NAUSEA/VOMITING-1ST LINE Prescribed by: LUIZ MORENO on 01/30/222157 Review of Systems Review of Systems Constitutional: No fever EENTM: No blurred vision Respiratory: cough, short of breath Cardiovascular: chest pain Gastrointestinal: No abdominal pain Genitourinary: no symptoms reported Musculoskeletal: no symptoms reported Skin: no symptoms reported Psychiatric/Neurological: No Symptoms Reported Hematologic/Lymphatic: No Symptoms Reported Immunological/Allergic: no symptoms reported All Other Systems Reviewed Negative Unless Noted: Yes Past Mbnikhi-Nzpmbz-Hhgkqu Hx Patient Social History Tobacco Use?: Yes Immunizations Up To Date First/Initial COVID19 Vaccinat: Yes Second COVID19 Vaccination Chaitanya: Yes Third COVID19 Vaccination Date: Yes Past Medical History Surgery/Hospitalization HX: Neuropathy; Depression; Seizures; GERD; COPD Surgeries: Yes (hernia repair, back surgery, knee surgery) Physical Exam Vital Signs - First Documented 04/23/22 10:26 Temp 36.3 Pulse 90 Resp 28 B/P (MAP) 114/84 (94) Pulse Ox 99 O2 Delivery Nasal Cannula Capillary Refill : Height: '" Weight: lbs. oz. kg; 23.00 BMI Method: General Appearance: WD/WN, no apparent distress HEENT: PERRL/EOMI, normal ENT inspection, pharynx normal Neck: non-tender, full range of motion, supple, normal inspection Respiratory: chest non-tender, no respiratory distress, no accessory muscle use, wheezing Cardiovascular: regular rate, rhythm, no edema, no murmur Gastrointestinal: normal bowel sounds, non tender, soft; No distended, No guarding, No rebound Extremities: normal range of motion, non-tender, normal inspection, no pedal edema, no calf tenderness, normal capillary refill Neurologic/Psychiatric: no motor/sensory deficits, alert, normal mood/affect Skin: normal color, warm/dry Lymphatic: no adenopathy Progress/Results/Core Measures Suspected Sepsis SIRS Temperature: Pulse: Respiratory Rate: Laboratory Tests 04/23/22 10:09: White Blood Count 9.3 Blood Pressure / Mean: Laboratory Tests 04/23/22 10:09: Creatinine 0.88, INR Comment 1.0, Platelet Count 261, Total Bilirubin 0.9 Results/Orders Lab Results Laboratory Tests Test 04/23/22 10:09 Range/Units White Blood Count 9.3 4.3-11.0 10^3/uL Red Blood Count 5.04 4.30-5.52 10^6/uL Hemoglobin 14.7 13.3-17.7 g/dL Hematocrit 43 40-54 % Mean Corpuscular Volume 85 80-99 fL Mean Corpuscular Hemoglobin 29 25-34 pg Mean Corpuscular Hemoglobin Concent 35 32-36 g/dL Red Cell Distribution Width 12.0 10.0-14.5 % Platelet Count 261 130-400 10^3/uL Mean Platelet Volume 9.2 9.0-12.2 fL Immature Granulocyte % (Auto) 0 % Neutrophils (%) (Auto) 79 H 42-75 % Lymphocytes (%) (Auto) 12 12-44 % Monocytes (%) (Auto) 8 0-12 % Eosinophils (%) (Auto) 1 0-10 % Basophils (%) (Auto) 0 0-10 % Neutrophils # (Auto) 7.3 1.8-7.8 10^3/uL Lymphocytes # (Auto) 1.1 1.0-4.0 10^3/uL Monocytes # (Auto) 0.8 0.0-1.0 10^3/uL Eosinophils # (Auto) 0.1 0.0-0.3 10^3/uL Basophils # (Auto) 0.0 0.0-0.1 10^3/uL Immature Granulocyte # (Auto) 0.0 0.0-0.1 10^3/uL Prothrombin Time 13.2 12.2-14.7 SEC INR Comment 1.0 0.8-1.4 Activated Partial Thromboplast Time 25 24-35 SEC D-Dimer 0.55 H 0.00-0.49 UG/ML Sodium Level 138 135-145 MMOL/L Potassium Level 3.9 3.6-5.0 MMOL/L Chloride Level 98 98-107 MMOL/L Carbon Dioxide Level 25 21-32 MMOL/L Anion Gap 15 H 5-14 MMOL/L Blood Urea Nitrogen 23 H 7-18 MG/DL Creatinine 0.88 0.60-1.30 MG/DL Estimat Glomerular Filtration Rate 101 BUN/Creatinine Ratio 26 Glucose Level 141 H 70-105 MG/DL Calcium Level 9.7 8.5-10.1 MG/DL Corrected Calcium 9.3 8.5-10.1 MG/DL Total Bilirubin 0.9 0.1-1.0 MG/DL Aspartate Amino Transf (AST/SGOT) 16 5-34 U/L Alanine Aminotransferase (ALT/SGPT) 16 0-55 U/L Alkaline Phosphatase 107 40-136 U/L Troponin I < 0.30 <0.30 NG/ML Pro-B-Type Natriuretic Peptide 47.9 <125.0 PG/ML Total Protein 8.3 H 6.4-8.2 GM/DL Albumin 4.5 3.2-4.5 GM/DL Lipase 17 8-78 U/L My Orders Orders - LUIZ MORENO MD Cbc With Automated Diff (04/23/22 10:08) Chest 1 View Ap/Pa Only (04/23/22 10:08) Ekg Tracing (04/23/22 10:08) Comprehensive Metabolic Panel (04/23/22 10:08) Protime With Inr (04/23/22 10:08) Partial Thromboplastin Time (04/23/22 10:08) O2 (04/23/22 10:08) Monitor-Rhythm Ecg Trace Only (04/23/22 10:08) Ed Iv/Invasive Line Start (04/23/22 10:08) Lipase (04/23/22 10:08) Fibrin Degradation Products (04/23/22 10:08) Troponin I Fs (04/23/22 10:08) Probnp Fs (04/23/22 10:08) Prednisone Tablet (Deltasone Tablet) (04/23/22 10:15) Albuterol/Ipra Inhalation Soln (Duoneb I (04/23/22 10:15) Doxycycline Hyclate Tablet (Vibramycin T (04/23/22 10:15) Medications Given in ED Current Medications Medications Dose Ordered Sig/Raj Route Start Time Stop Time Status Last Admin Dose Admin Doxycycline Hyclate 100 mg ONCE ONCE PO 04/23/22 10:15 04/23/22 10:16 DC 04/23/22 10:19 100 MG Prednisone 40 mg ONCE ONCE PO 04/23/22 10:15 04/23/22 10:16 DC 04/23/22 10:19 40 MG Vital Signs/I&O 04/23/22 04/23/22 10:26 10:46 Temp 36.3 Pulse 90 Resp 28 B/P (MAP) 114/84 (94) Pulse Ox 99 99 O2 Delivery Nasal Cannula Nasal Cannula Capillary Refill : Progress Note : Progress Note 56yoM with above history coming in due to SOB. ABCs were intact and vitals were stable on presentation. Physical exam with some wheezing bilaterally but no other abnormalities. Chest x-ray with emphysematous changes but no signs of infection. An IV was placed and basic labs were obtained as well as EKG. EKG with no acute ischemic changes. Troponin negative, age-adjusted D-dimer is negative, BNP unremarkable. Lungs sounded better after a DuoNeb treatment. Given the increasing productive cough, this is a COPD exacerbation clinically. Was given antibiotics, steroids, and gave him an nebulizer to take home. ECG Initial ECG Impression Date: Apr 23, 2022 Initial ECG Impression Time: 10:49 Initial ECG Rate: 68 Initial ECG Rhythm: Normal Sinus Comment Narrow QRS, normal axis, no significant ST elevation or TWI Diagnostic Imaging Diagonstic Imaging: Xray Plain Films/CT/US/NM/MRI: chest [facility] [place], [place] NAME: MARCOS BONNER [facility] REC#: [id number] PT STATUS: REG ER : 1965 PHYSICIAN: LUIZ MORENO MD ADMIT DATE: 04/23/22/ER FS Draft Date of Exam:04/23/22 CHEST 1 VIEW AP/PA ONLY Indication: Shortness of breath. Time of Exam: 10:14 AM Comparison is made with prior chest from 08/04/2019. Heart size is normal. Lungs are hyperinflated. No infiltrates are seen. There is no effusion or pneumothorax. IMPRESSION: Changes of COPD. No acute feature is detected. Dictated on workstation # [id number] Dict: 04/23/22 1030 Trans: 04/23/22 1035 [facility] [id number] Interpreted by: DENISHA KAYE MD Electronically signed by: Departure Impression Primary Impression: COPD exacerbation Disposition: 01 HOME, SELF-CARE Condition: Stable Departure-Patient Inst. Decision time for Depature: 11:15 Referrals: JABARI LATHAM DO (PCP) Primary Care Physician Patient Instructions: COPD Exacerbation, Adult ED Add. Discharge Instructions: It does not appear like you are having a heart attack or anything more life- threatening. This is likely what we call a COPD exacerbation which she will need steroids, antibiotics, and breathing treatments which have been sent to your pharmacy. Scripts Methylprednisolone (Methylprednisolone Dose Pack) 4 Mg Tab.ds.pk 4 MG PO UD for 6 Days, #21 PKG PER DOSE PACK INSTRUCTIONS Prov: LUIZ MORENO MD 04/23/22 Doxycycline Hyclate (Doxycycline Hyclate) 100 Mg Tablet 100 MG PO BID for 5 Days, #10 TAB 0 Refills Prov: LUIZ MORENO MD 04/23/22 Ipratropium/Albuterol Sulfate (Iprat-Albut 0.5-3(2.5) mg/3 ml) 0.5 Mg-3 Mg (2.5 Mg Base)/3 Ml Ampul.neb 3 ML IH Q6H PRN for SHORTNESS OF BREATH for 30 Days, #120 EACH Prov: LUIZ MORENO MD 04/23/22 Work/School Note: Work Release Form Date Seen in the Emergency Department: Apr 23, 2022 Return to Work: Apr 24, 2022 Restrictions: No Restrictions LUIZ MORENO MD Apr 23, 2022 10:13
[2022-04-23] MEDS ORDERED: predniSONE 20 MG TAB PO ONE (10:15)
[2022-04-23] MEDS ORDERED: RT-ALBUTEROL/IPRATROPIUM 3 ML (DUONEB) VIAL IH ONE (10:15)
[2022-04-23] MEDS ORDERED: DOXYCYCLINE 100 MG (VIBRAMYCIN) TABLET PO ONE (10:15)
[2022-04-23 10:20] LABS: BASOPHILS % (AUTO) 0 % (0-10); EOSINOPHILS # (AUTO) 0.1 10^3/uL (0.0-0.3); EOSINOPHILS % (AUTO) 1 % (0-10); HEMATOCRIT 43 % (40-54); HEMOGLOBIN 14.7 g/dL (13.3-17.7); LYMPHOCYTES # (AUTO) 1.1 10^3/uL (1.0-4.0); LYMPHOCYTES % (AUTO) 12 % (12-44); MEAN CORPUSCULAR HEMOGLOBIN 29 pg (25-34); MEAN CORPUSCULAR HGB CONC 35 g/dL (32-36); MEAN CORPUSCULAR VOLUME 85 fL (80-99); MEAN PLATELET VOLUME 9.2 fL (9.0-12.2); MONOCYTES # (AUTO) 0.8 10^3/uL (0.0-1.0); MONOCYTES % (AUTO) 8 % (0-12); NEUTROPHILS # (AUTO) 7.3 10^3/uL (1.8-7.8); NEUTROPHILS % (AUTO) 79 % (42-75); PLATELET COUNT 261 10^3/uL (130-400); WHITE BLOOD COUNT 9.3 10^3/uL (4.3-11.0)
[2022-04-23 10:26] VITALS: BP 114/84
--- NOTE | 2022-04-23 10:35 | Diagnostic Imaging Report ---
Indication: Shortness of breath. Time of Exam: 10:14 AM Comparison is made with prior chest from 08/04/2019. Heart size is normal. Lungs are hyperinflated. No infiltrates are seen. There is no effusion or pneumothorax. IMPRESSION: Changes of COPD. No acute feature is detected. Dictated by: Dictated on workstation # [id number]
[2022-04-23 10:53] LABS: PROTHROMBIN TIME PATIENT 13.2 SEC (12.2-14.7)
[2022-04-23 10:54] LABS: ALBUMIN 4.5 GM/DL (3.2-4.5); BILIRUBIN,TOTAL 0.9 MG/DL (0.1-1.0); CALCIUM 9.7 MG/DL (8.5-10.1); CREATININE SERUM 0.88 MG/DL (0.60-1.30); POTASSIUM 3.9 MMOL/L (3.6-5.0); TOTAL PROTEIN 8.3 GM/DL (6.4-8.2)
[2022-04-23] MEDS ORDERED: METH4TAB10 PO (11:14)
[2022-04-23] MEDS ORDERED: IPRA3AMP31 IH (11:14)
[2022-04-23] MEDS ORDERED: DOXY100T2 PO (11:14)
[2022-04-23] MEDS ORDERED: RT-ALBUTEROL HFA 8.5 GM INHALER IH STA (11:16)
== END 2022-04-23 11:35 | disposition home or self-care (01) ==
LOC: EDUNIT# 10:01 → ER FS 10:02
DX: J44.1 Chronic obstructive pulmonary disease with (acute) exacerbation (principal); Z72.0 Tobacco use
CPT/HCPCS: 36415; 71045; 80053; 83690; 83880; 84484; 85025; 85379; 85610; 85730; 93005; 93041

== ENCOUNTER 2022-05-12 09:44 | Emergency (ER) | payer MEDICARE, MEDICAID ==
[~2022-05-12] VITALS: Ht 182 cm; Wt 80.0 kg
[~2022-05-12 09:44] MED LIST changes: +DOXY100T2 PO; +IPRA3AMP31 IH; +METH4TAB10 PO
[2022-05-12 10:06] LABS: BASOPHILS % (AUTO) 1 % (0-10); EOSINOPHILS % (AUTO) 1 % (0-10); HEMATOCRIT 46 % (40-54); HEMOGLOBIN 16.2 g/dL (13.3-17.7); LYMPHOCYTES # (AUTO) 1.1 10^3/uL (1.0-4.0); LYMPHOCYTES % (AUTO) 26 % (12-44); MEAN CORPUSCULAR HEMOGLOBIN 29 pg (25-34); MEAN CORPUSCULAR HGB CONC 35 g/dL (32-36); MEAN CORPUSCULAR VOLUME 82 fL (80-99); MEAN PLATELET VOLUME 9.5 fL (9.0-12.2); MONOCYTES # (AUTO) 0.4 10^3/uL (0.0-1.0); MONOCYTES % (AUTO) 10 % (0-12); NEUTROPHILS # (AUTO) 2.7 10^3/uL (1.8-7.8); NEUTROPHILS % (AUTO) 63 % (42-75); PLATELET COUNT 179 10^3/uL (130-400); WHITE BLOOD COUNT 4.3 10^3/uL (4.3-11.0)
[2022-05-12 10:08] VITALS: BP 154/96
--- NOTE | 2022-05-12 10:11 | ED Abdominal Pain ---
General Chief Complaint: Abdominal/GI Problems Stated Complaint: RLQ PAIN; NAUSEA History of Present Illness Date Seen by Provider: May 12, 2022 Time Seen by Provider: 10:09 Initial Comments 56-year-old male with no significant PMH is here with complaints ofRLQ and epigastric pain which began today morning and is associated with nausea and vomiting. Denies fever, chills, diarrhea, chest pain, palpitations, dysuria. Patient denies any sick contacts. Allergies and Home Medications Allergies Coded Allergies: Penicillins (Verified Allergy, Unknown, 01/18/22) Patient Home Medication List Home Medication List Reviewed: Yes Baclofen (Baclofen) 5 Mg Tablet, 5 MG PO TID Prescribed by: DOMINIC JANG on 01/18/22 143 Dicyclomine HCl (Dicyclomine HCl) 20 Mg Tablet, 20 MG PO QID PRN for abdominal spasms Prescribed by: LUIZ MORENO on 01/30/222157 Doxycycline Hyclate (Doxycycline Hyclate) 100 Mg Tablet, 100 MG PO BID Prescribed by: LUIZ MORENO on 04/23/22 111 Ipratropium/Albuterol Sulfate (Iprat-Albut 0.5-3(2.5) mg/3 ml) 0.5 Mg-3 Mg (2.5 Mg Base)/3 Ml Ampul.neb, 3 ML IH Q6H PRN for SHORTNESS OF BREATH Prescribed by: LUIZ MORENO on 04/23/22 111 Methylprednisolone (Methylprednisolone Dose Pack) 4 Mg Tab.ds.pk, 4 MG PO UD Prescribed by: LUIZ MORENO on 04/23/22 111 Naproxen (Naprosyn) 500 Mg Tablet, 500 MG PO BID Prescribed by: DOMINIC JANG on 01/18/22 143 Ondansetron (Ondansetron Odt) 4 Mg Tab.rapdis, 4 MG PO Q6H PRN for NAUSEA/VOMITING-1ST LINE Prescribed by: LUIZ MORENO on 01/30/222157 Review of Systems Review of Systems Constitutional: no symptoms reported EENTM: No Symptoms Reported Respiratory: No Symptoms Reported Cardiovascular: No Symptoms Reported Gastrointestinal: Abdominal Pain, Nausea, Poor Appetite, Poor Fluid Intake, Vomiting Genitourinary: No Symptoms Reported Musculoskeletal: no symptoms reported Skin: no symptoms reported Psychiatric/Neurological: No Symptoms Reported Endocrine: No Symptoms Reported Hematologic/Lymphatic: No Symptoms Reported Past Xvcyref-Kvicqu-Dodhhh Hx Patient Social History Tobacco Use?: Yes Tobacco type used: Cigarettes Smoking Status: Current Everyday Smoker Substance use?: No Alcohol Use?: No Immunizations Up To Date First/Initial COVID19 Vaccinat: Yes Second COVID19 Vaccination Chaitanya: Yes Third COVID19 Vaccination Date: Yes Past Medical History Surgery/Hospitalization HX: Neuropathy; Depression; Seizures; GERD; COPD Surgeries: Yes (hernia repair, back surgery, knee surgery) Physical Exam Vital Signs Vital Signs - First Documented 05/12/22 10:08 Temp 35.7 Pulse 60 Resp 22 B/P (MAP) 154/96 (115) Pulse Ox 100 O2 Delivery Room Air Capillary Refill : Height/Weight/BMI Height: '" Weight: lbs. oz. kg; 24.00 BMI Method: General Appearance: mild distress HEENT: PERRL/EOMI Neck: full range of motion Respiratory: lungs clear, normal breath sounds Cardiovascular: regular rate, rhythm, no edema Gastrointestinal: normal bowel sounds, soft, no organomegaly, no pulsatile mass, tenderness (tenderness in RLQ, epigastric area, and hernan-umbilical area) Extremities: normal range of motion Back: normal inspection, no CVA tenderness, no vertebral tenderness Neurologic/Psychiatric: alert, normal mood/affect, oriented x 3 Skin: normal color Lymphatic: no adenopathy Focused Exam Lactate Level 05/12/22 10:00: Lactic Acid Level 1.95 Lactic Acid Level Laboratory Tests Test 05/12/22 10:00 Lactic Acid Level 1.95 MMOL/L (0.50-2.00) Progress/Results/Core Measures Results/Orders Lab Results Laboratory Tests Test 05/12/22 10:00 05/12/22 11:58 05/12/22 12:43 Range/Units White Blood Count 4.3 4.3-11.0 10^3/uL Red Blood Count 5.60 H 4.30-5.52 10^6/uL Hemoglobin 16.2 13.3-17.7 g/dL Hematocrit 46 40-54 % Mean Corpuscular Volume 82 80-99 fL Mean Corpuscular Hemoglobin 29 25-34 pg Mean Corpuscular Hemoglobin Concent 35 32-36 g/dL Red Cell Distribution Width 12.1 10.0-14.5 % Platelet Count 179 130-400 10^3/uL Mean Platelet Volume 9.5 9.0-12.2 fL Immature Granulocyte % (Auto) 0 % Neutrophils (%) (Auto) 63 42-75 % Lymphocytes (%) (Auto) 26 12-44 % Monocytes (%) (Auto) 10 0-12 % Eosinophils (%) (Auto) 1 0-10 % Basophils (%) (Auto) 1 0-10 % Neutrophils # (Auto) 2.7 1.8-7.8 10^3/uL Lymphocytes # (Auto) 1.1 1.0-4.0 10^3/uL Monocytes # (Auto) 0.4 0.0-1.0 10^3/uL Eosinophils # (Auto) 0.0 0.0-0.3 10^3/uL Basophils # (Auto) 0.0 0.0-0.1 10^3/uL Immature Granulocyte # (Auto) 0.0 0.0-0.1 10^3/uL Sodium Level 136 135-145 MMOL/L Potassium Level 3.8 3.6-5.0 MMOL/L Chloride Level 99 98-107 MMOL/L Carbon Dioxide Level 23 21-32 MMOL/L Anion Gap 14 5-14 MMOL/L Blood Urea Nitrogen 27 H 7-18 MG/DL Creatinine 1.04 0.60-1.30 MG/DL Estimat Glomerular Filtration Rate 84 BUN/Creatinine Ratio 26 Glucose Level 125 H 70-105 MG/DL Lactic Acid Level 1.95 0.50-2.00 MMOL/L Calcium Level 9.2 8.5-10.1 MG/DL Corrected Calcium 9.0 8.5-10.1 MG/DL Magnesium Level 2.2 1.6-2.4 MG/DL Total Bilirubin 0.6 0.1-1.0 MG/DL Aspartate Amino Transf (AST/SGOT) 27 5-34 U/L Alanine Aminotransferase (ALT/SGPT) 19 0-55 U/L Alkaline Phosphatase 84 40-136 U/L Troponin I < 0.30 <0.30 NG/ML Total Protein 7.4 6.4-8.2 GM/DL Albumin 4.2 3.2-4.5 GM/DL Lipase 21 8-78 U/L Urine Color YELLOW Urine Clarity CLEAR Urine pH 6.5 5-9 Urine Specific [place] <=1.005 1.016-1.022 Urine Protein TRACE H NEGATIVE Urine Glucose (UA) NEGATIVE NEGATIVE Urine Ketones 1+ H NEGATIVE Urine Nitrite NEGATIVE NEGATIVE Urine Bilirubin NEGATIVE NEGATIVE Urine Urobilinogen 2.0 < = 1.0 MG/DL Urine Leukocyte Esterase NEGATIVE NEGATIVE Urine RBC (Auto) NEGATIVE NEGATIVE Urine RBC NONE /HPF Urine WBC 0-2 /HPF Urine Squamous Epithelial Cells RARE /HPF Urine Crystals NONE /LPF Urine Bacteria NEGATIVE /HPF Urine Casts NONE /LPF Urine Mucus NEGATIVE /LPF Urine Culture Indicated NO Urine Opiates Screen NEGATIVE NEGATIVE Urine Oxycodone Screen NEGATIVE NEGATIVE Urine Methadone Screen NEGATIVE NEGATIVE Urine Propoxyphene Screen NEGATIVE NEGATIVE Urine Barbiturates Screen NEGATIVE NEGATIVE Ur Tricyclic Antidepressants Screen NEGATIVE NEGATIVE Urine Phencyclidine Screen NEGATIVE NEGATIVE Urine Amphetamines Screen NEGATIVE NEGATIVE Urine Methamphetamines Screen NEGATIVE NEGATIVE Urine Benzodiazepines Screen NEGATIVE NEGATIVE Urine Cocaine Screen NEGATIVE NEGATIVE Urine Cannabinoids Screen POSITIVE H NEGATIVE My Orders Orders - SHANNA SERRA MD Cbc With Automated Diff (05/12/22 09:51) Comprehensive Metabolic Panel (05/12/22 09:51) Drug Screen Stat (Urine) (05/12/22 09:51) Lactic Acid Analyzer (05/12/22 09:51) Lipase (05/12/22 09:51) Magnesium (05/12/22 09:51) Ua Culture If Indicated (05/12/22 09:51) Troponin I Fs (05/12/22 10:27) Ct Abdomen/Pelvis W (05/12/22 10:28) Ondansetron Injection (Zofran Injectio (05/12/22 10:30) Ed Iv/Invasive Line Start (05/12/22 10:28) Ns Iv 1000 Ml (Sodium Chloride 0.9%) (05/12/22 10:30) Ketorolac Injection (Toradol Injection) (05/12/22 10:30) Covid 19 Inhouse Test (05/12/22 10:30) Influenza A And B By Pcr (05/12/22 10:30) Iohexol Injection (Omnipaque 350 Mg/Ml 1 (05/12/22 10:45) Received Contrast (Hold Metformin- Contr (05/12/22 10:45) Ns (Ivpb) (Sodium Chloride 0.9% Ivpb Bag (05/12/22 10:45) Metoclopramide Injection (Reglan Injecti (05/12/22 12:37) Ed Iv/Invasive Line Start (05/12/22 12:44) Ns Iv 1000 Ml (Sodium Chloride 0.9%) (05/12/22 12:45) Medications Given in ED Current Medications Medications Dose Ordered Sig/Raj Route Start Time Stop Time Status Last Admin Dose Admin Iohexol 100 ml ONCE ONCE IV 05/12/22 10:45 05/12/22 10:46 DC 05/12/22 10:54 80 ML Ketorolac Tromethamine 15 mg ONCE ONCE IVP 05/12/22 10:30 05/12/22 10:31 DC 05/12/22 10:38 15 MG Ondansetron HCl 4 mg ONCE ONCE IVP 05/12/22 10:30 05/12/22 10:31 DC 05/12/22 10:37 4 MG Sodium Chloride 100 ml ONCE ONCE IV 05/12/22 10:45 05/12/22 10:46 DC 05/12/22 10:54 100 ML Sodium Chloride 1,000 ml @ 0 mls/hr Q0M ONCE IV 05/12/22 12:45 05/12/22 12:46 DC 05/12/22 13:07 1,000 MLS/HR Vital Signs/I&O 05/12/22 10:08 Temp 35.7 Pulse 60 Resp 22 B/P (MAP) 154/96 (115) Pulse Ox 100 O2 Delivery Room Air Progress Progress Note : Progress Note 1. ABDOMINAL PAIN INDUCED BY MARIJUANA ABUSE CYCLICAL VOMITING: - CT ABD & PELVIS: unremarkable - CBC/CMP: unremarkable, normal WBC - UA normal - UDS is positive for MARIJUANA - NS IVF bolus STAT - Toradol 15mg iv in ER - Zofran iv , then Reglan 10mg iv given in ER - Advised marijuana cessation immediately, since this is the trigger for his cyclical vomiting and abdominal pain - ZOfran ODT prescription given - Adequate hydration advised - Follow up with PCP within the next 3 days Diagnostic Imaging Diagonstic Imaging: CT Plain Films/CT/US/NM/MRI: abdomen Comments [facility] [place], [place] NAME: MARCOS BONNER [facility] REC#: [id number] PT STATUS: REG ER : 1965 PHYSICIAN: SHANNA SERRA MD ADMIT DATE: 05/12/22/ER FS Draft Date of Exam:05/12/22 CT ABDOMEN/PELVIS W PROCEDURE: CT abdomen and pelvis with contrast. TECHNIQUE: Multiple contiguous axial images were obtained through the abdomen and pelvis after administration of intravenous contrast. Auto Exposure Controls were utilized during the CT exam to meet ALARA standards for radiation dose reduction. All CT scans use one or more of the following dose optimizing techniques: automated exposure control, MA and/or KvP adjustment based on patient size and exam type or iterative reconstruction. INDICATION: Right lower quadrant pain. COMPARISON: Abdominal/pelvic CT of 01/30/2022. FINDINGS: The moderate sized retrocardiac hiatal hernia is chronic. The lung bases are clear. The liver, gallbladder, and bile ducts are unremarkable. The nonfocal spleen is normal in size. The adrenals are negative. The pancreas and peripancreatic fat are unremarkable. The kidneys are unobstructed and nonacute. There is a simple benign left upper pole renal cortical cyst. There is no diverticulitis or appendicitis. No perienteric or pericolonic edema. No focal inflammatory changes or stranding of the mesenteric or retroperitoneal fat. Portions of the left colon are not well distended limiting its evaluation; however, where adequately distended, the large and small bowel nair are non-thickened. There is no abnormal fecal or intestinal fluid loading. No obstruction or ileus. There is no ascites, abscess, hematoma, or acute fluid collection. The bony structures are nonacute. There are degenerative and post surgical changes to the spine. IMPRESSION: 1. Hiatal hernia. Benign renal cyst. Mild noninflamed colonic diverticulosis. 2. However, no obstructive feature, inflammatory process, or acute appearing abnormality is identified. Dictated on workstation # [id number] Dict: 05/12/22 1102 Trans: 05/12/22 1109 [id number] Interpreted by: JOSE ERICKSON Electronically signed by: Bill Impression Primary Impression: Cannabis abuse Additional Impression: Cyclical vomiting Disposition: HOME, SELF-CARE Condition: Stable Departure-Patient Inst. Referrals: JABARI LATHAM DO (PCP) Primary Care Physician Patient Instructions: Marijuana Use and Addiction, Nausea and Vomiting, Adult ED Add. Discharge Instructions: - Advised marijuana cessation immediately, since this is the trigger for his cyclical vomiting and abdominal pain - ZOfran ODT prescription given - Adequate hydration advised - Follow up with PCP within the next 3 days All discharge instructions reviewed with patient and/or family. Voiced understanding. Scripts Ondansetron (Ondansetron Odt) 4 Mg Tab.rapdis 4 MG SL Q4H PRN for NAUSEA/VOMITING for 5 Days, #20 TAB Prov: SHANNA SERRA MD 05/12/22 Work/School Note: Work Release Form Date Seen in the Emergency Department: May 12, 2022 Return to Work: May 13, 2022 Restrictions: No Restrictions, Return-No Vomiting(24hrs) SHANNA SERRA MD May 12, 2022 10:11
[2022-05-12] MEDS ORDERED: ONDANSETRON 4 MG/2 ML (SDV) Z0FRAN IVP ONE (10:30)
[2022-05-12] MEDS ORDERED: KETOROLAC 30 MG/ML VIAL IVP ONE (10:30)
[2022-05-12] MEDS ORDERED: NS IV 1000 ML 1,000 ML IV SCH (10:30)
[2022-05-12 10:32] LABS: POTASSIUM 3.8 MMOL/L (3.6-5.0)
[2022-05-12 10:33] LABS: ALBUMIN 4.2 GM/DL (3.2-4.5); BILIRUBIN,TOTAL 0.6 MG/DL (0.1-1.0); CALCIUM 9.2 MG/DL (8.5-10.1); CREATININE SERUM 1.04 MG/DL (0.60-1.30); MAGNESIUM 2.2 MG/DL (1.6-2.4); TOTAL PROTEIN 7.4 GM/DL (6.4-8.2)
[2022-05-12] MEDS ORDERED: IOHEXOL 350 MG/ML 100 ML (OMNIPAQUE 350) VIAL IV ONE (10:45)
[2022-05-12] MEDS ORDERED: HOLD METFORMIN - RECEIVED CONTRAST 20 ML VIAL IV SCH (10:45)
[2022-05-12] MEDS ORDERED: NS 100 ML (IVPB) BAG IV ONE (10:45)
--- NOTE | 2022-05-12 11:10 | Diagnostic Imaging Report ---
PROCEDURE: CT abdomen and pelvis with contrast. TECHNIQUE: Multiple contiguous axial images were obtained through the abdomen and pelvis after administration of intravenous contrast. Auto Exposure Controls were utilized during the CT exam to meet ALARA standards for radiation dose reduction. All CT scans use one or more of the following dose optimizing techniques: automated exposure control, MA and/or KvP adjustment based on patient size and exam type or iterative reconstruction. INDICATION: Right lower quadrant pain. COMPARISON: Abdominal/pelvic CT of 01/30/2022. FINDINGS: The moderate sized retrocardiac hiatal hernia is chronic. The lung bases are clear. The liver, gallbladder, and bile ducts are unremarkable. The nonfocal spleen is normal in size. The adrenals are negative. The pancreas and peripancreatic fat are unremarkable. The kidneys are unobstructed and nonacute. There is a simple benign left upper pole renal cortical cyst. There is no diverticulitis or appendicitis. No perienteric or pericolonic edema. No focal inflammatory changes or stranding of the mesenteric or retroperitoneal fat. Portions of the left colon are not well distended limiting its evaluation; however, where adequately distended, the large and small bowel nair are non-thickened. There is no abnormal fecal or intestinal fluid loading. No obstruction or ileus. There is no ascites, abscess, hematoma, or acute fluid collection. The bony structures are nonacute. There are degenerative and post surgical changes to the spine. IMPRESSION: 1. Hiatal hernia. Benign renal cyst. Mild noninflamed colonic diverticulosis. 2. However, no obstructive feature, inflammatory process, or acute appearing abnormality is identified. Dictated by: Dictated on workstation # [id number]
[2022-05-12] MEDS ORDERED: METOCLOPRAMIDE INJ 10 MG/2 ML (REGLAN) IVP STA (12:37)
[2022-05-12] MEDS ORDERED: NS IV 1000 ML 1,000 ML IV ONE (12:45)
[2022-05-12 13:23] LABS: AMPHETAMINE SCREEN, URINE NEGATIVE (NEGATIVE); BARBITURATE SCREEN URINE NEGATIVE (NEGATIVE); BENZODIAZEPINES SCREEN URINE NEGATIVE (NEGATIVE); CANNABINOID SCREEN, URINE POSITIVE (NEGATIVE); CLARITY,URINE CLEAR; COCAINE SCREEN URINE NEGATIVE (NEGATIVE); COLOR,URINE YELLOW; METHADONE STAT NEGATIVE (NEGATIVE); OPIATE SCREEN URINE NEGATIVE (NEGATIVE); OXYCODONE STAT NEGATIVE (NEGATIVE); PH,URINE 6.5 (5-9); PROPOXYPHENE STAT NEGATIVE (NEGATIVE); TRICYCLIC ANTIDEPRESSANTS SCRE NEGATIVE (NEGATIVE)
[2022-05-12 13:24] LABS: BACTERIA,URINE NEGATIVE /HPF; BILIRUBIN,URINE NEGATIVE (NEGATIVE); GLUCOSE, URINE (UA) NEGATIVE (NEGATIVE); KETONES,URINE 1+ (NEGATIVE); LEUKOCYTE ESTERASE ,URINE NEGATIVE (NEGATIVE); NITRITE,URINE NEGATIVE (NEGATIVE); PROTEIN,URINE TRACE (NEGATIVE); SQUAMOUS EPITHELIAL CELL,UR RARE /HPF; WBC,URINE 0-2 /HPF
[2022-05-12] MEDS ORDERED: ONDA4TAB11 SL (13:45)
== END 2022-05-12 14:00 | disposition home or self-care (01) ==
LOC: EDUNIT# 09:44 → ER FS 09:46
DX: F12.10 Cannabis abuse, uncomplicated (principal); R11.15 Cyclical vomiting syndrome unrelated to migraine; U07.1 COVID-19; F17.210 Nicotine dependence, cigarettes, uncomplicated
CPT/HCPCS: 36415; 74177; 80053; 80306; 81000; 83605; 83690; 83735; 84484; 85025; 87636; 96361; 96374; 96375; Q9967

== ENCOUNTER 2022-10-20 12:13 | Outpatient (CLI) | payer MEDICARE, MEDICAID ==
[~2022-10-20] VITALS: Ht 182.9 cm; Wt 84.5 kg
[~2022-10-20 12:13] MED LIST changes: +ONDA4TAB11 SL
[2022-10-21] MEDS ORDERED: TRZ50T PO (09:19)
[2022-10-21] MEDS ORDERED: METH-731 PO (09:19)
[2022-10-21] MEDS ORDERED: CARB1TAB32 PO (09:19)
[2022-10-21] MEDS ORDERED: OMEP40CA6 PO (09:19)
[2022-10-21] MEDS ORDERED: MELO7.5T46 PO (09:19)
[2022-10-21] MEDS ORDERED: BUPR900F3 BC (09:19)
[2022-10-21] MEDS ORDERED: CLOP75TA28 PO (09:19)
[2022-10-21] MEDS ORDERED: CITA40TA13 PO (09:19)
[2022-10-21] MEDS ORDERED: GABA800T10 PO (09:19)
[2022-10-21] MEDS ORDERED: FLUT1BLS3 IH (09:19)
== END 2022-10-27 08:58 | disposition home or self-care (01) ==
LOC: PREOP 12:13
PROVIDERS: ATTEND Otolaryngology Otolaryngology/Facial Plastic Surgery
DX: Z01.818 Encounter for other preprocedural examination (principal); K13.0 Diseases of lips; Z72.0 Tobacco use; Z79.01 Long term (current) use of anticoagulants